=== PATIENT | male | born 1990 | race Caucasian/White ===

== ENCOUNTER 2019-01-16 17:15 | Emergency (ER) | payer BC ==
--- NOTE | 2019-01-16 17:57 | RAD ---
3 views left ankle history: Left ankle pain. AP, lateral and oblique views left ankle obtained. 3 views left ankle demonstrate no evidence of left ankle fractures, subluxations or bony lesions. IMPRESSION: normal 3 views left ankle.
[2019-01-16] MEDS ORDERED: Ibuprofen 800 MG TAB ONE (18:10)
== END 2019-01-16 18:30 | disposition home or self-care (01) ==
LOC: BURERS 17:15
DX: S93.402A Sprain of unspecified ligament of left ankle, initial encounter (principal); I10 Essential (primary) hypertension; Z79.899 Other long term (current) drug therapy; X50.9XXA Other and unspecified overexertion or strenuous movements or postures, initial encounter